=== PATIENT | male | born 1950 | race Caucasian/White ===

== ENCOUNTER 2016-05-24 03:47 | Emergency (ER) | payer OTHER ==
[~2016-05-24] VITALS: Ht 172.7 cm; Wt 81.8 kg
[2016-05-24 04:49] LABS: BASOPHILS % (AUTO) 0.2 % (0.0-2.0); EOSINOPHILS % (AUTO) 0.1 % (1.0-6.0); HEMOGLOBIN 17.6 g/dL (13.5-17.5); LYMPHOCYTES # (AUTO) 2.1 K/uL (1.0-4.8); LYMPHOCYTES % (AUTO) 15.1 % (22.0-44.0); MEAN CORPUSCULAR HEMOGLOBIN 31.2 pg (26.0-34.0); MEAN CORPUSCULAR HGB CONC 32.6 G/dL (31.0-37.0); MEAN CORPUSCULAR VOLUME 96 fL (80-100); MONOCYTES # (AUTO) 0.6 K/uL (0.1-1.0); MONOCYTES % (AUTO) 4.2 % (2.0-9.0); NEUTROPHILS # (AUTO) 11.1 K/uL (1.8-7.7); NEUTROPHILS % (AUTO) 80.4 % (40.0-70.0); PLATELET COUNT (AUTO) 466 K/uL (150-450); RED BLOOD CELL COUNT(AUTO) 5.66 MIL/uL (4.50-5.90); RED CELL DISTRIBUTION WIDTH 15.5 % (11.5-14.5); WHITE BLOOD COUNT (AUTO) 13.8 K/uL (4.5-11.0)
[2016-05-24 05:02] LABS: APPEARANCE,URINE CLOUDY (CLEAR); GLUCOSE, URINE (UA) NEGATIVE (NEGATIVE); KETONES,URINE NEGATIVE (NEGATIVE); LEUKOCYTE ESTERASE ,URINE NEGATIVE (NEGATIVE); OCCULT BLOOD,URINE TRACE (NEGATIVE); PROTEIN,URINE TRACE (NEGATIVE)
[2016-05-24 05:02] LABS: ANION GAP 22 mmol/L (8-16); CALCIUM, TOTAL 8.2 mg/dL (8.8-10.5); CARBON DIOXIDE 17 mmol/L (22-29); CHLORIDE 106 mmol/L (98-107); CREATININE 1.01 mg/dL (0.60-1.30); GLOMERULAR FILTR. RATE CALC > 60 mL/min (>60); POTASSIUM 3.9 mmol/L (3.5-5.1); SODIUM SERUM 145 mmol/L (136-145); UREA NITROGEN, BLOOD 26 mg/dL (7-18)
[2016-05-24 05:07] LABS: ALANINE AMINOTRANSFERASE 47 U/L (12-78); ALBUMIN 3.6 g/dL (3.4-5.0); ASPARTATE AMINOTRANSFERASE 35 U/L (15-37); BILIRUBIN,TOTAL 0.2 mg/dL (0.1-1.0); TOTAL PROTEIN, SERUM 7.4 g/dL (6.4-8.2)
[2016-05-24 05:22] LABS: WBC,URINE None Seen /HPF (0-5)
[2016-05-24] MEDS ORDERED: MAGNESIUM SULFATE 2 GM, MVI, ADULT NO.1 WITH VIT K 10 ML, THIAMINE HCL 100 MG, FOLIC AC... IV ONE ×5 (09:45)
[2016-05-24] MEDS ORDERED: SODIUM CHLORIDE 0.9% 1,000 ML IV ONE (09:45)
[2016-05-24 13:04] VITALS: BP 135/83
== END 2016-05-24 13:40 | disposition home or self-care (01) ==
LOC: EMS 03:49
DX: F10.229 Alcohol dependence with intoxication, unspecified (principal); T68.XXXA Hypothermia, initial encounter; Y90.8 Blood alcohol level of 240 mg/100 ml or more
CPT/HCPCS: 36415; 51701; 80053; 80307; 81001; 82962; 85025; 96365; 96366; 99285; G0480; J3411; J3475; J3490 ×2; J7030; 96361; 99284

== ENCOUNTER 2016-05-25 11:41 | Emergency (ER) | payer OTHER ==
[~2016-05-25] VITALS: Ht 172.7 cm; Wt 70.0 kg
[2016-05-25 12:02] LABS: GLUCOSE,POINT OF CARE 90 MG/DL (70-110)
[2016-05-25 12:27] LABS: BASOPHILS # (AUTO) 0.03 K/uL (0.00-0.20); BASOPHILS % (AUTO) 0.1 % (0.0-2.0); EOSINOPHILS # (AUTO) 0.01 K/uL (0.00-0.70); EOSINOPHILS % (AUTO) 0.06 % (1.0-6.0); HEMOGLOBIN 17.7 g/dL (13.5-17.5); LYMPHOCYTES % (AUTO) 9.8 % (22.0-44.0); MEAN CORPUSCULAR HEMOGLOBIN 31.8 pg (26.0-34.0); MEAN CORPUSCULAR VOLUME 93 fL (80-100); MONOCYTES # (AUTO) 0.9 K/uL (0.1-1.0); MONOCYTES % (AUTO) 4.5 % (2.0-9.0); NEUTROPHILS # (AUTO) 17.1 K/uL (1.8-7.7); PLATELET COUNT (AUTO) 435 K/uL (150-450); RED BLOOD CELL COUNT(AUTO) 5.57 MIL/uL (4.50-5.90); RED CELL DISTRIBUTION WIDTH 16.1 % (11.5-14.5)
[2016-05-25 12:28] LABS: NEUTROPHILS % (AUTO) 85.5 % (40.0-70.0); RBC MORPHOLOGY COMMENT NORMAL RBC MORPH
[2016-05-25 12:37] LABS: ANION GAP 11 mmol/L (8-16); CARBON DIOXIDE 25 mmol/L (22-29); CHLORIDE 106 mmol/L (98-107); CREATININE 0.74 mg/dL (0.60-1.30); GLOMERULAR FILTR. RATE CALC > 60 mL/min (>60); POTASSIUM 3.8 mmol/L (3.5-5.1); SODIUM SERUM 142 mmol/L (136-145); UREA NITROGEN, BLOOD 20 mg/dL (7-18)
[2016-05-25 12:42] LABS: ALANINE AMINOTRANSFERASE 53 U/L (12-78); ALBUMIN 3.7 g/dL (3.4-5.0); ASPARTATE AMINOTRANSFERASE 80 U/L (15-37); BILIRUBIN,TOTAL 0.4 mg/dL (0.1-1.0); TOTAL PROTEIN, SERUM 7.2 g/dL (6.4-8.2)
[2016-05-25] MEDS ORDERED: MAGNESIUM SULFATE 2 GM, MVI, ADULT NO.1 WITH VIT K 10 ML, THIAMINE HCL 100 MG, FOLIC AC... IV ONE ×5 (13:00)
[2016-05-25] MEDS ORDERED: SODIUM CHLORIDE 0.9% 1,000 ML IV ONE (18:30)
[2016-05-25 22:04] VITALS: BP 117/74
== END 2016-05-25 22:22 | disposition home or self-care (01) ==
LOC: EMS 11:42
DX: F10.229 Alcohol dependence with intoxication, unspecified (principal); F17.210 Nicotine dependence, cigarettes, uncomplicated; Y90.8 Blood alcohol level of 240 mg/100 ml or more
CPT/HCPCS: 36415; 51702; 80053; 80307; 82962; 85025; 96361; 96365; 99285; 99406; G0480; J3411; J3475; J3490 ×2; J7030

== ENCOUNTER 2016-05-26 08:04 | Inpatient (IN) | payer MEDICAID, OTHER ==
[~2016-05-26] VITALS: Ht 177.8 cm; Wt 72.7 kg
[2016-05-26 08:26] LABS: BASOPHILS % (AUTO) 1.5 % (0.0-2.0); EOSINOPHILS % (AUTO) 0 % (1.0-6.0); HEMATOCRIT 50.9 % (41-53); HEMOGLOBIN 16.6 g/dL (13.5-17.5); LYMPHOCYTES # (AUTO) 0.7 K/uL (1.0-4.8); LYMPHOCYTES % (AUTO) 3.4 % (22.0-44.0); MEAN CORPUSCULAR HEMOGLOBIN 31.3 pg (26.0-34.0); MEAN CORPUSCULAR HGB CONC 32.5 G/dL (31.0-37.0); MEAN CORPUSCULAR VOLUME 96 fL (80-100); MONOCYTES # (AUTO) 0.8 K/uL (0.1-1.0); MONOCYTES % (AUTO) 3.8 % (2.0-9.0); NEUTROPHILS # (AUTO) 18.8 K/uL (1.8-7.7); PLATELET COUNT (AUTO) 344 K/uL (150-450); RED BLOOD CELL COUNT(AUTO) 5.29 MIL/uL (4.50-5.90); RED CELL DISTRIBUTION WIDTH 15.2 % (11.5-14.5); WHITE BLOOD COUNT (AUTO) 20.5 K/uL (4.5-11.0)
[2016-05-26 08:38] LABS: ANION GAP 20 mmol/L (8-16); CARBON DIOXIDE 16 mmol/L (22-29); CHLORIDE 102 mmol/L (98-107); CREATININE 0.65 mg/dL (0.60-1.30); GLOMERULAR FILTR. RATE CALC > 60 mL/min (>60); POTASSIUM 3.8 mmol/L (3.5-5.1); SODIUM SERUM 138 mmol/L (136-145); UREA NITROGEN, BLOOD 21 mg/dL (7-18)
[2016-05-26 08:44] LABS: ACETAMINOPHEN < 2 mcg/mL (10-30); ALANINE AMINOTRANSFERASE 60 U/L (12-78); ALBUMIN 3.5 g/dL (3.4-5.0); ASPARTATE AMINOTRANSFERASE 109 U/L (15-37); BILIRUBIN,TOTAL 0.3 mg/dL (0.1-1.0); TOTAL PROTEIN, SERUM 6.9 g/dL (6.4-8.2)
[2016-05-26 08:45] LABS: NEUTROPHILS % (AUTO) 91.3 % (40.0-70.0)
[2016-05-26] MEDS ORDERED: SODIUM CHLORIDE 0.9% 1,000 ML IV ONE ×2 (11:45→19:45)
[2016-05-26] MEDS ORDERED: MAGNESIUM SULFATE 2 GM, MVI, ADULT NO.1 WITH VIT K 10 ML, THIAMINE HCL 100 MG, FOLIC AC... IV ONE ×5 (12:45)
[2016-05-26] MEDS ORDERED: HALOPERIDOL LACTATE 5 MG/ML VIAL IM ONE (19:45)
[2016-05-26] MEDS ORDERED: DiphenhydrAMINE HCL 50 MG/ML VIAL IM ONE (19:45)
[2016-05-26] MEDS ORDERED: LORazepam 2 MG/ML VIAL IM ONE (19:45)
[2016-05-27] MEDS ORDERED: LOPERAMIDE HCL 2 MG CAPSULE PO ONE (09:30)
[2016-05-27] MEDS ORDERED: CYANOCOBALAMIN 1,000 MCG/ML VIAL IM ONE (09:45)
[2016-05-27] MEDS ORDERED: DIAZEPAM 10 MG TABLET PO ONE (09:45)
[2016-05-27] MEDS ORDERED: TUBERCULIN, PURIFIED PROTEIN DERIVATIVE 5 TU/0.1 ML SYG ID ONE (09:45)
[2016-05-27] MEDS ORDERED: ZOLPIDEM TARTRATE 10 MG TABLET PO PRN ×2 (09:45)
[2016-05-27] MEDS ORDERED: HydrOXYzine PAMOATE 50 MG CAPSULE PO PRN (09:45)
[2016-05-27] MEDS ORDERED: MAGNESIUM HYDROXIDE SUSPENSION 30 ML UDCUP PO PRN (09:45)
[2016-05-27] MEDS ORDERED: ACETAMINOPHEN 325 MG TABLET PO PRN (09:45)
[2016-05-27] MEDS ORDERED: GuaiFENesin/D-METHORPHAN [SUGAR-FREE] 200-20MG/10 ML SYRUP UDCUP PO PRN (09:45)
[2016-05-27] MEDS ORDERED: MAG HYDROX/AL HYDROX/SIMETH ES 30 ML SUSPENSION UDCUP PO PRN (09:45)
[2016-05-27] MEDS ORDERED: IBUP-1547 PO (11:52)
[2016-05-27 12:00] VITALS: BP 126/70
[2016-05-27] MEDS: GABAPENTIN 300 MG CAPSULE PO SCH ×3 (12:54→20:51)
[2016-05-27 13:00] VITALS: BP 127/74
[2016-05-27] MEDS: DIAZEPAM 10 MG TABLET PO PRN ×3 (13:07→20:53)
[2016-05-27 13:29] LABS: APPEARANCE,URINE CLEAR (CLEAR); GLUCOSE, URINE (UA) NEGATIVE (NEGATIVE); KETONES,URINE >=80 mg/dL (NEGATIVE); LEUKOCYTE ESTERASE ,URINE TRACE (NEGATIVE); OCCULT BLOOD,URINE MODERATE (NEGATIVE); PH,URINE 5.5 (5.0-8.0); PROTEIN,URINE TRACE (NEGATIVE)
[2016-05-27 13:32] LABS: ADD UA MICROSCOPIC YES
[2016-05-27 13:37] LABS: SQUAMOUS EPITHELIAL CELL,UR Few /LPF (None Seen)
[2016-05-27 14:00] VITALS: BP 118/68
[2016-05-27] MEDS ORDERED: BARIUM SULFATE 0.1% SUSPENSION 450 ML BOTTLE ONE (14:30)
[2016-05-27] MEDS ORDERED: INFLUENZA VIRUS VACCINE QVS 2016-17 (3YR+)/PF 60 MCG/0.5 ML SYRINGE IM ONE (14:45)
[2016-05-27 15:00] VITALS: BP 117/79
[2016-05-27] MEDS ORDERED: IOVERSOL 350 MG/ML 150 ML VIAL ONE (16:36)
[2016-05-27] MEDS: NICOTINE 14 MG/24 HOUR PATCH TD SCH (17:27)
[2016-05-27] MEDS: THIAMINE HCL 100 MG TABLET PO SCH (17:27)
[2016-05-27 19:00] VITALS: BP 117/64
[2016-05-27] MEDS: LOPERAMIDE HCL 2 MG CAPSULE PO PRN (19:12)
[2016-05-27] MEDS: MIRTAZAPINE 15 MG TABLET PO SCH (20:52)
[2016-05-27 23:30] VITALS: BP 119/65
[2016-05-28] VITALS (8 sets, daily range): BP systolic 115–134; BP diastolic 68–83
[2016-05-28 06:53] LABS: BASOPHILS % (AUTO) 0.5 % (0.0-2.0); EOSINOPHILS % (AUTO) 0.5 % (1.0-6.0); HEMOGLOBIN 13.4 g/dL (13.5-17.5); LYMPHOCYTES # (AUTO) 2.4 K/uL (1.0-4.8); LYMPHOCYTES % (AUTO) 27.2 % (22.0-44.0); MEAN CORPUSCULAR HEMOGLOBIN 31.2 pg (26.0-34.0); MEAN CORPUSCULAR HGB CONC 32.8 G/dL (31.0-37.0); MEAN CORPUSCULAR VOLUME 95 fL (80-100); MONOCYTES # (AUTO) 0.5 K/uL (0.1-1.0); MONOCYTES % (AUTO) 5.6 % (2.0-9.0); NEUTROPHILS # (AUTO) 5.9 K/uL (1.8-7.7); NEUTROPHILS % (AUTO) 66.2 % (40.0-70.0); PLATELET COUNT (AUTO) 237 K/uL (150-450); RED CELL DISTRIBUTION WIDTH 15.1 % (11.5-14.5); WHITE BLOOD COUNT (AUTO) 8.8 K/uL (4.5-11.0)
[2016-05-28 07:07] LABS: HEMOGLOBIN A1C 5.8 % (4.5-6.2)
[2016-05-28] MEDS ORDERED: CloNIDine HCL 0.1 MG TABLET PO PRN (07:15)
[2016-05-28 07:28] LABS: ALANINE AMINOTRANSFERASE 59 U/L (12-78); ALBUMIN 2.7 g/dL (3.4-5.0); ANION GAP 9 mmol/L (8-16); ASPARTATE AMINOTRANSFERASE 83 U/L (15-37); BILIRUBIN,TOTAL 1.1 mg/dL (0.1-1.0); CALCIUM, TOTAL 8.7 mg/dL (8.8-10.5); CARBON DIOXIDE 27 mmol/L (22-29); CHLORIDE 107 mmol/L (98-107); CHOL/HDL RATIO 2.1 (4.2-7.3); CREATININE 0.58 mg/dL (0.60-1.30); GLOMERULAR FILTR. RATE CALC > 60 mL/min (>60); SODIUM SERUM 143 mmol/L (136-145); THYROID STIMULATING HORMONE 3.42 uIU/mL (0.36-3.74); UREA NITROGEN, BLOOD 13 mg/dL (7-18)
[2016-05-28 07:45] LABS: POTASSIUM 2.9 mmol/L (3.5-5.1)
[2016-05-28] MEDS ORDERED: POTASSIUM CHLORIDE 20 MEQ ER TABLET PO ONE ×2 (08:00→17:00)
[2016-05-28] MEDS: THIAMINE HCL 100 MG TABLET PO SCH ×2 (08:33→16:21)
[2016-05-28] MEDS: MULTIVITAMINS WITH MINERALS, THERAPEUTIC TABLET PO SCH (08:33)
[2016-05-28] MEDS: FOLIC ACID 1 MG TABLET PO SCH (08:33)
[2016-05-28] MEDS: DIAZEPAM 10 MG TABLET PO SCH ×4 (08:33→20:42)
[2016-05-28] MEDS: NITROFURANTOIN/NITROFURAN MAC 100 MG CAPSULE [MACROBID] PO SCH ×2 (08:34→16:21)
[2016-05-28] MEDS: NALTREXONE HCL 50 MG TABLET PO SCH (08:34)
[2016-05-28] MEDS: GABAPENTIN 300 MG CAPSULE PO SCH ×4 (08:35→20:42)
[2016-05-28] MEDS: LOPERAMIDE HCL 2 MG CAPSULE PO PRN ×2 (08:39→20:43)
[2016-05-28] MEDS: NICOTINE 14 MG/24 HOUR PATCH TD SCH (08:44)
[2016-05-28] MEDS: MIRTAZAPINE 15 MG TABLET PO SCH (20:42)
[2016-05-29 06:13] VITALS: BP 151/64
[2016-05-29] MEDS: LOPERAMIDE HCL 2 MG CAPSULE PO PRN ×2 (06:14→13:16)
[2016-05-29] MEDS: DIAZEPAM 10 MG TABLET PO PRN (06:24)
[2016-05-29] MEDS: NITROFURANTOIN/NITROFURAN MAC 100 MG CAPSULE [MACROBID] PO SCH ×2 (09:02→16:36)
[2016-05-29] MEDS: DIAZEPAM 10 MG TABLET PO SCH ×4 (09:02→20:22)
[2016-05-29] MEDS: FOLIC ACID 1 MG TABLET PO SCH (09:02)
[2016-05-29] MEDS: MULTIVITAMINS WITH MINERALS, THERAPEUTIC TABLET PO SCH (09:02)
[2016-05-29] MEDS: NALTREXONE HCL 50 MG TABLET PO SCH (09:02)
[2016-05-29] MEDS: GABAPENTIN 300 MG CAPSULE PO SCH ×4 (09:02→20:21)
[2016-05-29] MEDS: NICOTINE 14 MG/24 HOUR PATCH TD SCH (09:06)
[2016-05-29] MEDS: THIAMINE HCL 100 MG TABLET PO SCH ×2 (09:08→16:36)
[2016-05-29 09:10] VITALS: BP 148/93
[2016-05-29 10:35] VITALS: BP 148/93
[2016-05-29 10:37] VITALS: BP 148/93
[2016-05-29 16:23] VITALS: BP 118/87
[2016-05-29] MEDS: MIRTAZAPINE 15 MG TABLET PO SCH (20:22)
[2016-05-30 01:38] VITALS: BP 131/87
[2016-05-30 01:39] VITALS: BP 131/87
[2016-05-30] MEDS: DIAZEPAM 10 MG TABLET PO PRN (01:50)
[2016-05-30] MEDS ORDERED: DIAZEPAM 5 MG TABLET PO PRN (07:00)
[2016-05-30 08:04] VITALS: BP 125/79
[2016-05-30] MEDS: MULTIVITAMINS WITH MINERALS, THERAPEUTIC TABLET PO SCH (09:21)
[2016-05-30] MEDS: NALTREXONE HCL 50 MG TABLET PO SCH (09:21)
[2016-05-30] MEDS: NITROFURANTOIN/NITROFURAN MAC 100 MG CAPSULE [MACROBID] PO SCH ×2 (09:21→16:02)
[2016-05-30] MEDS: GABAPENTIN 300 MG CAPSULE PO SCH ×4 (09:21→20:43)
[2016-05-30] MEDS: FOLIC ACID 1 MG TABLET PO SCH (09:21)
[2016-05-30] MEDS: THIAMINE HCL 100 MG TABLET PO SCH ×2 (09:22→16:03)
[2016-05-30] MEDS: DIAZEPAM 5 MG TABLET PO SCH ×4 (09:22→20:43)
[2016-05-30] MEDS: LOPERAMIDE HCL 2 MG CAPSULE PO PRN (09:23)
[2016-05-30] MEDS: NICOTINE 14 MG/24 HOUR PATCH TD SCH (09:26)
[2016-05-30 17:09] VITALS: BP 126/84
[2016-05-30 18:00] VITALS: BP 126/84
[2016-05-30] MEDS: MIRTAZAPINE 15 MG TABLET PO SCH (20:43)
[2016-05-30 20:48] VITALS: BP 118/79
[2016-05-31 05:43] VITALS: BP 123/82
[2016-05-31] MEDS: MULTIVITAMINS WITH MINERALS, THERAPEUTIC TABLET PO SCH (09:13)
[2016-05-31] MEDS: FOLIC ACID 1 MG TABLET PO SCH (09:13)
[2016-05-31] MEDS: NALTREXONE HCL 50 MG TABLET PO SCH (09:14)
[2016-05-31] MEDS: NITROFURANTOIN/NITROFURAN MAC 100 MG CAPSULE [MACROBID] PO SCH ×2 (09:14→16:49)
[2016-05-31] MEDS: THIAMINE HCL 100 MG TABLET PO SCH ×2 (09:14→16:49)
[2016-05-31] MEDS: GABAPENTIN 300 MG CAPSULE PO SCH (09:14)
[2016-05-31] MEDS: NICOTINE 14 MG/24 HOUR PATCH TD SCH (09:17)
[2016-05-31 10:09] VITALS: BP 111/69
[2016-05-31 10:38] VITALS: BP 111/69
[2016-05-31] MEDS: GABAPENTIN 400 MG CAPSULE PO SCH ×3 (12:56→20:07)
[2016-05-31] MEDS: DIAZEPAM 5 MG TABLET PO PRN ×2 (13:15→20:08)
[2016-05-31 16:26] VITALS: BP 124/76
[2016-05-31] MEDS: MIRTAZAPINE 15 MG TABLET PO SCH (20:07)
[2016-06-01 06:23] VITALS: BP 128/82
[2016-06-01 06:26] VITALS: BP 128/82
[2016-06-01 08:56] VITALS: BP 132/87
[2016-06-01] MEDS: GABAPENTIN 400 MG CAPSULE PO SCH ×4 (09:10→20:16)
[2016-06-01] MEDS: FOLIC ACID 1 MG TABLET PO SCH (09:10)
[2016-06-01] MEDS: MULTIVITAMINS WITH MINERALS, THERAPEUTIC TABLET PO SCH (09:10)
[2016-06-01] MEDS: NALTREXONE HCL 50 MG TABLET PO SCH (09:11)
[2016-06-01] MEDS: DULoxetine HCL 20 MG CAPSULE PO SCH (09:11)
[2016-06-01] MEDS: THIAMINE HCL 100 MG TABLET PO SCH ×2 (09:11→17:36)
[2016-06-01] MEDS: NICOTINE 14 MG/24 HOUR PATCH TD SCH (09:16)
[2016-06-01] MEDS: QUEtiapine FUMARATE 100 MG TABLET PO PRN ×2 (09:29→20:16)
[2016-06-01] MEDS: MIRTAZAPINE 15 MG TABLET PO SCH (20:17)
[2016-06-01] MEDS: NYSTATIN 15 GM POWDER BOTTLE TP SCH (20:46)
[2016-06-01 21:30] VITALS: BP 129/84
[2016-06-02 00:45] VITALS: BP 133/77
[2016-06-02 08:00] VITALS: BP 134/77
[2016-06-02] MEDS: THIAMINE HCL 100 MG TABLET PO SCH ×2 (08:56→17:09)
[2016-06-02] MEDS: GABAPENTIN 400 MG CAPSULE PO SCH ×4 (08:56→20:03)
[2016-06-02] MEDS: MULTIVITAMINS WITH MINERALS, THERAPEUTIC TABLET PO SCH (08:56)
[2016-06-02] MEDS: DULoxetine HCL 20 MG CAPSULE PO SCH (08:56)
[2016-06-02] MEDS: NALTREXONE HCL 50 MG TABLET PO SCH (08:57)
[2016-06-02] MEDS: FOLIC ACID 1 MG TABLET PO SCH (08:57)
[2016-06-02] MEDS: NYSTATIN 15 GM POWDER BOTTLE TP SCH ×2 (08:59→17:09)
[2016-06-02] MEDS: NICOTINE 14 MG/24 HOUR PATCH TD SCH (08:59)
[2016-06-02] MEDS: QUEtiapine FUMARATE 100 MG TABLET PO PRN ×2 (09:00→17:18)
[2016-06-02 18:45] VITALS: BP 111/78
[2016-06-02] MEDS: MIRTAZAPINE 15 MG TABLET PO SCH (20:03)
[2016-06-03 04:13] VITALS: BP 125/80
[2016-06-03] MEDS: NALTREXONE HCL 50 MG TABLET PO SCH (09:42)
[2016-06-03] MEDS: NICOTINE 14 MG/24 HOUR PATCH TD SCH (09:42)
[2016-06-03] MEDS: THIAMINE HCL 100 MG TABLET PO SCH (09:42)
[2016-06-03] MEDS: DULoxetine HCL 20 MG CAPSULE PO SCH (09:42)
[2016-06-03] MEDS: MULTIVITAMINS WITH MINERALS, THERAPEUTIC TABLET PO SCH (09:42)
[2016-06-03] MEDS: NYSTATIN 15 GM POWDER BOTTLE TP SCH (09:42)
[2016-06-03] MEDS: QUEtiapine FUMARATE 100 MG TABLET PO PRN (09:42)
[2016-06-03] MEDS: FOLIC ACID 1 MG TABLET PO SCH (09:42)
[2016-06-03] MEDS: GABAPENTIN 400 MG CAPSULE PO SCH ×2 (09:46→13:08)
[2016-06-03] MEDS ORDERED: DULO20CA30 PO (11:09)
[2016-06-03] MEDS ORDERED: NALT50 PO (11:11)
[2016-06-03] MEDS ORDERED: GABA-533 PO (11:11)
[2016-06-03] MEDS ORDERED: MIRT15 PO (11:11)
[2016-06-03] MEDS ORDERED: NYST15CR2 TP (11:23)
[2016-06-03 11:26] VITALS: BP 132/69
== END 2016-06-03 14:05 | disposition home or self-care (01) | DRG 751 ==
LOC: EMS 08:06 → 3EI 05-27 10:03
PROVIDERS: ADMIT Psychiatry & Neurology Psychiatry; ATTEND Psychiatry & Neurology Psychiatry
DX: F33.2 Major depressive disorder, recurrent severe without psychotic features (principal); F10.229 Alcohol dependence with intoxication, unspecified; K52.9 Noninfective gastroenteritis and colitis, unspecified; Y90.8 Blood alcohol level of 240 mg/100 ml or more; Z59.0 Homelessness; Z28.21 Immunization not carried out because of patient refusal
CPT/HCPCS: 70450; 74177; 83036; 84132; 84153; 84439; 84443; 86592; 87086; 96360; 96361; 96365; 96366; 96372; 99285; G0480; G0481; J1200; J1630; J2060; J3411; J3420; J3475; J3490; J7030